=== PATIENT | female | born 1940 | race African-American/Black ===

== ENCOUNTER 2019-11-16 17:06 | Emergency (ER) | payer OTHER, BC ==
[~2019-11-16] VITALS: Ht 160 cm; Wt 71.7 kg
[2019-11-16] MEDS ORDERED: COZAAR 25 MG TA25 M2 PO (21:51)
[2019-11-16 22:00] VITALS: BP 137/72
--- NOTE | 2019-11-17 12:34 | EKG ---
[facility] [place] [address] ELECTROCARDIOGRAM REPORT Name: KESHA PUENTES V Room #: DEP [facility]#: [id number] Admission: 11/16/19 Attend Phys: Discharge: 11/16/19 Date of : 38 Report #: [id number] THIS REPORT FOR: cc: Bayron Peter MD, Mark A. MD Lundgren, Craig H. 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[facility] : 1940 Requested By: Marla Gifford Order Number: [id number] MD: Lan Agosto Measurements Intervals [place] Rate: 80 P: -4 VT: 146 QRS: -24 QRSD: 89 T: 53 QT: 381 QTc: 440 Interpretive Statements Sinus rhythm Left ventricular hypertrophy Anterior Q waves, possibly due to LVH No previous ECG available for comparison Electronically Signed On 11-17-2019 8:51:54 CUFF SETTER by Lan Agosto [email or web address] <ELECTRONICALLY SIGNED> By: Lan Agosto MD, [facility] 11/17/19 0851 1714 1714 Lan Agosto MD, [facility] /EPI
== END 2019-11-16 22:00 | disposition home or self-care (01) ==
LOC: ER 17:06
DX: I10 Essential (primary) hypertension (principal); Z90.711 Acquired absence of uterus with remaining cervical stump

== ENCOUNTER 2021-09-12 12:50 | Inpatient (IN) | payer OTHER, BC ==
[~2021-09-12] VITALS: Ht 170.2 cm; Wt 66.3 kg
[~2021-09-12 12:50] MED LIST: COZAAR 25 MG TA25 M2 PO
[2021-09-12 13:05] VITALS: BP 174/86
[2021-09-12 14:38] LABS: URINE BILIRUBIN NEGATIVE (Negative); URINE BLOOD 2+ (Negative); URINE CLARITY SL CLOUDY; URINE COLOR YELLOW; URINE GLUCOSE-RANDOM* NEGATIVE (Negative); URINE KETONES 1+ (Negative); URINE LEUKOCYTES-REFLEX NEGATIVE (Negative); URINE NITRITE-REFLEX NEGATIVE (Negative); URINE PROTEIN (DIPSTICK) 2+ (Negative); URINE SPECIFIC GRAVITY 1.025 (1.005-1.035); URINE UROBILINOGEN 0.2 E.U./dl (0.2-1.0)
[2021-09-12 14:57] LABS: CALCIUM 9.3 mg/dL (8.5-10.1); CREATININE 1.2 mg/dL (0.6-1.0); POTASSIUM 3.9 mmol/L (3.5-5.1)
[2021-09-12 14:59] LABS: SQUAMOUS 0-3 Few /LPF (0-3)
[2021-09-12 15:00] LABS: CASTS None Seen /LPF (None Seen); URINE RBC 3-10 Few /HPF (NONE SEEN); URINE WBC-REFLEX 0-5 Rare /HPF (0-5)
[2021-09-12 15:01] LABS: CRYSTALS None Seen /LPF (None Seen)
[2021-09-12 15:12] LABS: ABSOLUTE NEUTROPHILS 9.6 thou/uL (1.4-8.2); BASOPHILS 0.5 % (0.0-2.0); HEMATOCRIT 40.1 % (37.0-47.0); HEMOGLOBIN 12.9 gm/dL (12.0-15.0); LYMPHOCYTES 4.1 % (24.0-44.0); MCH 29.1 pg (26.0-34.0); MCV 90.9 fL (80.0-100.0); MONOCYTES 7.3 % (1.0-8.0); PLATELET COUNT 340 thou/uL (150-400); POLYS 88.1 % (36.0-66.0); RBC 4.41 mil/uL (4.20-5.00); RDW 14.5 % (10.5-14.5); WBC 10.9 thou/uL (4.0-11.0)
[2021-09-12 17:34] LABS: ALBUMIN 2.8 g/dL (3.4-5.0); DIRECT BILIRUBIN < 0.1 mg/dL (<0.1-0.2); SGOT 69 U/L (15-37); SGPT 60 U/L (14-59); TOTAL BILIRUBIN 0.4 mg/dL (0.2-1.0); TOTAL PROTEIN 8.1 g/dL (6.4-8.2)
[2021-09-12 17:52] LABS: FOLIC ACID 14.7 ng/mL (8.6-58.9)
[2021-09-13 02:39] LABS: CALCIUM 8.5 mg/dL (8.5-10.1); CREATININE 0.9 mg/dL (0.6-1.0); DIRECT BILIRUBIN 0.1 mg/dL (<0.1-0.2); MAGNESIUM 2.4 mg/dL (1.8-2.4); PHOSPHORUS 3.6 mg/dL (2.5-4.9); POTASSIUM 4.2 mmol/L (3.5-5.1); TOTAL BILIRUBIN 0.3 mg/dL (0.2-1.0)
[2021-09-13 03:25] LABS: ABSOLUTE NEUTROPHILS 6.9 thou/uL (1.4-8.2); BASOPHILS 0.2 % (0.0-2.0); HEMATOCRIT 37.5 % (37.0-47.0); HEMOGLOBIN 12.2 gm/dL (12.0-15.0); LYMPHOCYTES 6.1 % (24.0-44.0); MCH 29.6 pg (26.0-34.0); MCHC 32.6 g/dL (28.0-37.0); MCV 90.6 fL (80.0-100.0); MONOCYTES 5.9 % (1.0-8.0); PLATELET COUNT 350 thou/uL (150-400); POLYS 87.8 % (36.0-66.0); RBC 4.14 mil/uL (4.20-5.00); RDW 13.8 % (10.5-14.5); WBC 7.8 thou/uL (4.0-11.0)
[2021-09-13 08:23] VITALS: BP 167/88
--- NOTE | 2021-09-13 08:46 | EKG ---
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
[2021-09-13 12:33] VITALS: BP 172/100
--- NOTE | 2021-09-13 13:21 | NUR ---
PER PHARMACY, REMDESIVIR WILL BE SCHEDULED FOR 1600 TODAY DUE TO INCOMPATIBILITY OF ZITHROMAX AND REMDESIVIR. PT. RECEIVING ZITHROMAX IV AT THIS TIME.
--- NOTE | 2021-09-13 14:39 | NUR ---
PT. RECEIVED AM MEDICATIONS THIS MORNING. PT. WAS EXHIBITING COUGH AND SWALLOWING DIFFICULTY WHEN AM RN WAS ADMINISTERING HER MEDICATIONS. PT. WAS SEEN BY SPEECH EVALUATION AND TOLERATED PO MEDICAITON ADMINISTRATION WITH RN AND SPEECH THERAPY AT BEDSIDE. PER SPEECH THERAPY, PT. THICKENED DIET. PT. IS AWARE OF HER PLAN OF CARE, AND WITHOUT COMPLAINTS AT THIS TIME.
[2021-09-13 14:52] VITALS: BP 166/110
[2021-09-13 19:56] VITALS: BP 155/82
[2021-09-13 21:01] VITALS: BP 166/90
[2021-09-13 23:38] VITALS: BP 152/83
[2021-09-14 03:06] VITALS: BP 181/86
--- NOTE | 2021-09-14 03:44 | NUR ---
PT ARRIVED TO ROOM 355 VIA CART. ADMISSION ASSESSMENTS COMPLETED WITH PT PROVIDING SOME INFORMATION BUT UNAWARE OF HER MEDICAL/SURGICAL HISTORY. VIEWED H&P FOR FURTHER INFORMATION. PT REPORTEDLY VACCINATED WITH NO CONTACT WITH ANY KNOWN COVID POSTIIVE PERSONS PER H&P. PT ON OPTIFLO UPON ARRIVAL TO UNIT AND HAS BEEN UNTIL THIS MORNING. THIS AM PT WAS RESISTIVE TO THAT DEVICE BUT WAS UNABLE TO VERBALIZE THE REASON. DID DISCOVER THAT CONDENSATION IN THE TUBING WAS LIKELY BLOWING SMALL AMOUNTS OF WATER INTO HER NARES. PT WOULD NOT ALLOW THAT CANNULA TO BE PLACED AGAIN EVEN WHEN EXPLAINING THAT IT WAS EMPTIED. PT ROOM AIR O2 SAT DROPPPED TO 77%. NON-REBREATHER PLACED AND O2 SAT WAS UP TO 92-93%. RT INFORMED. WILL MONITOR. CONTINUOUS PULSE OXIMETER ALREADY IN PLACED.
[2021-09-14 06:52] LABS: ANION GAP 11 mmol/L (7-16); BUN 27 mg/dL (7-18); CALCIUM 8.7 mg/dL (8.5-10.1); CHLORIDE 111 mmol/L (98-107); CO2 24 mmol/L (21-32); DIRECT BILIRUBIN < 0.1 mg/dL (<0.1-0.2); GLUCOSE 148 mg/dL (74-106); PHOSPHORUS 2.8 mg/dL (2.6-4.7); POTASSIUM 4.4 mmol/L (3.5-5.1); SGOT 41 U/L (15-37); SGPT 50 U/L (14-59); SODIUM 146 mmol/L (136-145); TOTAL BILIRUBIN 0.3 mg/dL (0.2-1.0); TOTAL PROTEIN 6.7 g/dL (6.4-8.2)
[2021-09-14 07:54] VITALS: BP 175/99
--- NOTE | 2021-09-14 08:14 | HC ---
[facility] [place] [address] CONSULTATION Name: KESHA PUENTES Room #: 355- ADM IN M.R.#: [id number] Admission: 09/12/21 Attend Phys: Shmuel Enriquez MD Discharge: Date of : 39 Report #: [id number] THIS REPORT FOR: cc: Bayron Peter MD, Mark A. MD Barry, Joseph W. MD ~ DATE OF SERVICE: 09/13/2021 INFECTIOUS DISEASE CONSULTATION ATTENDING PHYSICIAN: Dr. Enriquez. REASON FOR EVALUATION: COVID-19 infection, complicated by pneumonitis and respiratory failure. HISTORY OF PRESENT ILLNESS: Chart reviewed. The patient examined. This is an 80-year-old with history of hypertension, apparently lives at home with her daughter, has several-day history of illness, primarily a nonproductive cough. She states she had a diminished appetite and p.o. intake, progressive weakness. She presented to the Emergency Room, was found to have a positive COVID test. Chest x-ray showed some perihilar infiltrates, cardiomegaly. Lactic acid 1.7. Urinalysis otherwise unremarkable. CRP was elevated at 191.7. Sed rate of 85. Blood cultures sterile thus far. Urine culture was negative. She did have low-grade temperature elevations. On admission, she was resuscitated, subsequently hemodynamically has improved. She is maintained on Optiflow 50 L/min, FiO2 of 60%. She was empirically started on combination therapy with azithromycin, ceftriaxone, remdesivir as well as corticosteroids. ALLERGIES: None known. MEDICATIONS: Include ceftriaxone, cholecalciferol, zinc, ascorbic acid, pantoprazole, dexamethasone, guaifenesin, enoxaparin, ipratropium, albuterol inhaler, p.r.n. analgesics, antiemetics, remdesivir. PAST MEDICAL HISTORY: Hypertension, possible mild dementia. SOCIAL HISTORY: Former smoker. No illicit drug use. No ethanol. FAMILY HISTORY: Noncontributory. REVIEW OF SYSTEMS: Otherwise, unremarkable. PHYSICAL EXAMINATION: GENERAL: She appears somewhat chronically ill, is pleasant, cooperative. She is mildly encephalopathic. HEENT: Normocephalic. Extraocular muscles intact. Optiflow in place. [facility] [address] [place] [address] CONSULTATION Name: KESHA PUENTES Room #: 355-P [facility].#: [id number] Admission: 09/12/21 Attend Phys: Shmuel Enriquez MD Discharge: Date of : 39 Report #: [id number] NECK: Supple. LUNGS: Bilateral few scattered coarse breath sounds. HEART: Borderline tachycardic, regular. I do not appreciate a murmur. ABDOMEN: Soft, nontender. EXTREMITIES: No cyanosis. GENITOURINARY AND RECTAL: Deferred. LABORATORY DATA: Blood and urine cultures negative thus far. As noted above, CBC: White count of 7.8, H and H 12.2 and 37.5, platelets of 350. Electrolytes: Sodium 141, potassium 4.2, chloride 108, bicarbonate is 22, anion gap of 11. BUN and creatinine 23 and 0.9. AST of 44, ALT of 43, albumin 2, total protein 7.0, estimated GFR of 73. Sed rate of 85. TSH 0.674. Procalcitonin 0.14. ASSESSMENT AND PLAN: COVID-19 infection, complicated by pneumonitis, respiratory failure. Continue as prescribed the therapy, we will add ____. She appears to be quite tenuous at this point and I would be concerned about an occult process, ____ inflammation, elevated sed rate ____ be attributable to the coronavirus. May have some underlying occult process. Continue oxygen therapy as allowed. Monitor expectantly. Continue supportive care. <ELECTRONICALLY SIGNED> By: Brian Shahid MD 09/14/21 0814 1520 2320 Brian Shahid MD /nt
[2021-09-14 11:29] VITALS: BP 156/90
--- NOTE | 2021-09-14 15:05 | NUR ---
PT ADMITTED RELATED TO COVID-19. CM REVIEWED CHART AND SPOKE WITH CARE TEAM. CM UNABLE TO MEET WITH PT RELATED TO ENHANCED ISOLATION. CM SPOKE TO PTS DAUGHTER DONY WHO REPORTS SHE IS PTS DPOA. 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 SHE REPORTS 6-8 STAIRS THAT LEAD TO HER BASEMENT FOR LAUNDRY BUT PT DOES NOT GO DOWN THERE. DAUGHTER DOES PTS LAUNDRY. PT IS INDEPENDANT WITH MOBILITY AND ADLS. PT LIVES 15 MIN AWAY FROM DONY WHO CHECKS ON HER DAILY. PT DRIVES HER OWN CAR PRIOR TO ADMISSION. PTS DAUGHTER REPORTS ONCE MEDICALLY STABLE THE GOAL FOR HER MOM TO RETURN HOME. CM FOLLOWING DC PLANNING.
[2021-09-14 15:39] VITALS: BP 173/102
--- NOTE | 2021-09-14 18:40 | NUR ---
assumed care of pt at 0700. pt pleasant, confused, forgetful. stress incontinence. iv fluids d/c'd. iv abx infusing per order. small appetite. dtr updated on plan of care. bp high - prn antihypertensives given.
[2021-09-14 20:33] VITALS: BP 163/101
[2021-09-14 22:56] VITALS: BP 149/86
[2021-09-15 04:21] VITALS: BP 166/93
[2021-09-15 05:08] LABS: ANION GAP 10 mmol/L (7-16); BUN 25 mg/dL (7-18); CALCIUM 8.7 mg/dL (8.5-10.1); CHLORIDE 110 mmol/L (98-107); CO2 25 mmol/L (21-32); CREATININE 0.9 mg/dL (0.6-1.0); DIRECT BILIRUBIN < 0.1 mg/dL (<0.1-0.2); GLUCOSE 133 mg/dL (74-106); PHOSPHORUS 2.4 mg/dL (2.6-4.7); POTASSIUM 3.9 mmol/L (3.5-5.1); SGOT 33 U/L (15-37); SGPT 43 U/L (14-59); SODIUM 145 mmol/L (136-145); TOTAL BILIRUBIN 0.4 mg/dL (0.2-1.0); TOTAL PROTEIN 6.6 g/dL (6.4-8.2)
[2021-09-15 07:34] VITALS: BP 163/90
--- NOTE | 2021-09-15 08:52 | NUR ---
PT MAKING SLOW PROGRESS TOWARDS GOALS. LUNGS CTA UPPER LOBES WITH FAINT CRACKLES IN BL LOWER LOBES. ON OPTIFLO WITH 02 AT 45L AND FIO2 AT 41-44% OVERNIGHT. PT ABLE TO TOLERATE THIS THROUGHOUT THE NIGHT. OCCASIONAL DRY COUGH BUT PT DOES APPEAR TO BECOME ANXIOUS AND NEARLY PANIC WHEN SHE COUGHS. THIS TYPICALLY LAST VERY BRIEFLY AND VERBAL SUPPORT HAS BEEN HELPFUL. PT ORIENTED TO HER NAME, DATE, LOCATION "HOSPITAL" AND "I HAVE COVID." NO COUGHING NOTED WHEN TAKING THICKENED LIQUIDS THOUGH PT DOES TAKE VERY SMALL AMOUNTS WHEN DRINKING.
[2021-09-15 11:23] VITALS: BP 160/88
[2021-09-15 15:24] VITALS: BP 181/94
--- NOTE | 2021-09-15 16:16 | NUR ---
PATIENT ASSESMENTS CHARTED. PATIENT NOT WANTING TO EAT OR DRINK MUCH TODAY. FAMILY UPDATED BY RN. PATIENT HAD SOME HIGH BP, TREATED WITH PRN HYDRALAZINE.
[2021-09-15 20:00] VITALS: BP 166/93
[2021-09-16 05:10] VITALS: BP 137/85
[2021-09-16 05:30] VITALS: BP 157/68
[2021-09-16 05:44] LABS: ALBUMIN 2.2 g/dL (3.4-5.0); CALCIUM 8.9 mg/dL (8.5-10.1); DIRECT BILIRUBIN 0.1 mg/dL (<0.1-0.2); PHOSPHORUS 3.1 mg/dL (2.5-4.9); POTASSIUM 4.2 mmol/L (3.5-5.1); TOTAL BILIRUBIN 0.4 mg/dL (0.2-1.0); TOTAL PROTEIN 6.8 g/dL (6.4-8.2)
[2021-09-16 07:57] VITALS: BP 179/98
[2021-09-16 11:32] VITALS: BP 176/87
[2021-09-16 15:21] VITALS: BP 167/98
--- NOTE | 2021-09-16 16:27 | NUR ---
PATIENT IS ALERT TO SELF AND PLACE THIS SHIFT. PATIENT HAS DIMINISHED BREATH SOUNDS. PATIENT IS ON A HIGH FLOW NASAL CANULA WITH 40L'S OXYGEN SATURATION IS STAYING IN THE MID TO HIGH 90'S. PATIENT IS CC/ TELE AND HAS BEEN SINUS RHYTHM THIS SHIFT. PATIENT HAS HAD LITTLE APPETITE THIS SHIFT. PATIENT IS INCONTINENT OF URINE. PATIENT HAS NOT BEEN OUT OF BED THIS SHIFT BUT HAS BEEN REPOSITIONED Q2 HOURS ORDERED. PATIENT HAS AN IV IN HER LEFT AC. PATIENTS IV IS PATIENT AND SALINE LOCKED. PATIENT WILL CONTINUE TO BE MONITORED.
[2021-09-16 20:55] VITALS: BP 151/87
[2021-09-17] VITALS (7 sets, daily range): BP systolic 146–167; BP diastolic 82–93
--- NOTE | 2021-09-17 00:13 | NUR ---
PT ALERT TO SELF. CONFUSED. VSS AFEBRILE. SATS 89-95% ON OPTIFLO 40LF AND FIO2 50%. PT POCKETS FOOD IN MOUTH AND IS SLOW TO SWALLOW. DENIED PAIN. INC OF URINE. PURE WICK INTACT TO SUCTION. BED DOWN BED ALARM IS ON. NO S/S DISTRESS PRESENTLY.
--- NOTE | 2021-09-17 01:53 | NUR ---
PT DESATTED TO 73%. SHE GOT CONFUSED, PULLED OFF O2 AND TOOK OFF HER CLOTHES AND SAT UP AT SIDE OF BED. PLACED PT BACK UP IN BED AND OPTIFLO REPLACED. RT NOTIFIED. SAT INCREASED SLOWLY T0 95% WITH OPTIFLO FIO2 100% 60 LF AND 100%NR ON TOP. EHSAN MARTINEZ NOTIFIED OF RESP DISTRESS AND DECREASED UO. SHE WILL LOOK AT PT'S CHART. ABGS BEING DRAWN. WILL NOTIFIY DR LÓPEZ OF CHANGES ALSO.
[2021-09-17 02:06] LABS: BE(vivo) -1.6 mmol/L (-2 to +3); HCO3 20.4 mmol/L (22.0-26.0); PCO2 27.5 mmHg (35.0-45.0); PO2 82.5 mmHg (80.0-100.0); pH 7.489 (7.360-7.450)
[2021-09-17 05:00] LABS: ALBUMIN 2.2 g/dL (3.4-5.0); ANION GAP 11 mmol/L (7-16); BUN 32 mg/dL (7-18); CALCIUM 8.9 mg/dL (8.5-10.1); CHLORIDE 111 mmol/L (98-107); CO2 25 mmol/L (21-32); DIRECT BILIRUBIN < 0.1 mg/dL (<0.1-0.2); GLUCOSE 143 mg/dL (74-106); PHOSPHORUS 3.3 mg/dL (2.5-4.9); POTASSIUM 4.1 mmol/L (3.5-5.1); SGOT 60 U/L (15-37); SGPT 89 U/L (30-65); SODIUM 147 mmol/L (136-145); TOTAL BILIRUBIN 0.4 mg/dL (0.2-1.0); TOTAL PROTEIN 6.3 g/dL (6.4-8.2)
[2021-09-17 05:04] LABS: HEMATOCRIT 41.1 % (37.0-47.0); HEMOGLOBIN 13.3 gm/dL (12.0-15.0); MCH 29.4 pg (26.0-34.0); MCHC 32.2 g/dL (28.0-37.0); MCV 91.2 fL (80.0-100.0); RBC 4.51 mil/uL (4.20-5.00); RDW 14.4 % (10.5-14.5)
--- NOTE | 2021-09-17 07:46 | NUR ---
PT NOT PROGRESSING TOWARDS D/C GOALS. PT STILL ON OPTIFLOW 100% FIO2 AND LF 60 WITH 100% NRB MASK ON TOP ALSO. PT APPEARS TO BE HAVING TROUBLE SWALLOWING. HELD AM COUGH MEDICINE. NOTIFIED JACKAROO PCXRAY ORDERED. PT NPO FOR NOW. ST TO REEVALUATE. SHE HAS NOT ATTEMPTED TO GET OOB AGAIN TONIGHT.
--- NOTE | 2021-09-17 12:10 | NUR ---
CARE ASSUMED THIS AM, PT ALERT AND ORIENTED TO SELF ALONE. CONFUSED AND IMPULSIVE AT TIMES. CURRENTLY ON 90%, 60L ON OPTIFLOW. SOB WITH EXERTION. MEDS CRUSHED AND ON PUREED DIET. PT HAS LOW APPETITE, ON;LY EATS SPOONFUL OF MEALS , PT ENCOURAGED. ESTENAL CATHETER IN PLACE. FALL AND ENHANCED PRECAUTIONS IN PLACE. WILL CONTINUE TO MONITOR
--- NOTE | 2021-09-17 14:36 | NUR ---
SW reviewed chart and spoke with nursing and attending physician. Pt remains in Enhanced Isolation due to COVID. Pt is afebrile and requiring optiflow. Pt is on IV abx, IV steroids and Remdesivir. Pt unable to participate with therapy today. TEVIN is following to assist as needed with discharge planning.
--- NOTE | 2021-09-18 03:05 | NUR ---
MAINTAINING OXYGENATION LEVEL ON THE 100%,60 LITERS OPTIFLO. DROWSY TONIGHT. I DID NOT GIVE HER THE COUGH SYRUP TONIGHT. SHE HAS SPIT UP HER SPUTUM ONTO HER CHEST SEVERAL TIMES TONIGHT. WHICH HAS BEEN A TRINIDAD COLOR AND THIN. SHE HAS VERY LITTLE ENERGY TO SWOLLOW. SHE IS PROFOUNDLY WEAK. VERY LITTLE TIMES AWAKE. SHE IS ABLE TO FOLLOW A COMMAND, BUT DRIFTS OFF TO SLEEP EASILY. TURNS AND CLEANING OFTEN. EXTERNAL CATHETER CATCHING SOME URINE.
[2021-09-18 03:54] VITALS: BP 134/83
[2021-09-18 06:24] LABS: ALBUMIN 2.1 g/dL (3.4-5.0); ANION GAP 9 mmol/L (7-16); BUN 32 mg/dL (7-18); CALCIUM 8.6 mg/dL (8.5-10.1); CHLORIDE 114 mmol/L (98-107); CO2 25 mmol/L (21-32); CREATININE 0.9 mg/dL (0.6-1.0); DIRECT BILIRUBIN < 0.1 mg/dL (<0.1-0.2); GLUCOSE 117 mg/dL (74-106); PHOSPHORUS 3.3 mg/dL (2.5-4.9); POTASSIUM 4.2 mmol/L (3.5-5.1); SGOT 51 U/L (15-37); SGPT 77 U/L (30-65); SODIUM 148 mmol/L (136-145); TOTAL BILIRUBIN 0.4 mg/dL (0.2-1.0); TOTAL PROTEIN 5.7 g/dL (6.4-8.2)
[2021-09-18 08:05] VITALS: BP 127/76
--- NOTE | 2021-09-18 08:38 | NUR ---
Pt with negible oral intake past week, profound weakness, wt loss 6 lb and rising Na/Cl without IVF. Recommend start clinimix PPN at 125ml/hr goal
[2021-09-18 11:28] VITALS: BP 140/83
--- NOTE | 2021-09-18 13:29 | NUR ---
PT IS SLOWLY PROGRESSING TOWARDS POC, CONTINUE TO HAVE LOW APPETTITE, SWOLLOWS FOOD REALLY SLOWLY AND HAS TO BE PROMPTED TO DO SO. PT HAS THRUSH ON HER TONGUE =, DR. FAUST MADE AWARE. NYSTATIN ORDERED. OPTIFLOW ON 30L. 60% , TOLERATING WELL. FALL AND ENHANCED PRECAUTIONS IN PLACE. DTR CALLED AND UPDATED ABOUT PT CARE. DENIES ANY NEEDS, WILL CONTINUE TO MONITOR
[2021-09-18 15:14] VITALS: BP 128/86
--- NOTE | 2021-09-18 17:08 | NUR ---
SW reviewed chart and spoke with nursing and attending physician. Pt remains in Enhanced Isolation due to COVID. Pt is afebrile and requiring optiflow. Pt is on IV meds and Remdesivir. Therapy has been ordered and is following for recommendations for discharge needs. SW is following to assist as needed with discharge planning.
[2021-09-18 19:55] VITALS: BP 141/85
--- NOTE | 2021-09-19 04:02 | NUR ---
RESTING QUIETLY, DENIES PAIN. SHE IS FORGETFUL AND ALERT TO PERSON. UNABLE TO TO CONVERSE WITH THE HIGH DEMAND OF OXYGEN SHE IS RECIEVING. SHE IS TAKING HER NYSTATIN SLOWLY WHEN GIVEN, HOWEVER SHE WILL SWOLLOW IT. SHE MUST BE REMINDED TO SWOLLOW. SHE TENDS TO POCKET ANY PO INTAKE. NEEDS ASSIST WITH TURNING SHE IS VERY WEAK.
[2021-09-19 05:00] VITALS: BP 149/83
[2021-09-19 07:56] VITALS: BP 137/82
[2021-09-19 11:29] VITALS: BP 147/79
[2021-09-19 15:18] VITALS: BP 136/78
--- NOTE | 2021-09-19 18:40 | NUR ---
RN ASSUMED PT'S CARE AT 0700AM, PT IS CONFUSED, PT CAN NOT FOLLOW COMMANDS, PT IS ON OPTIFLOW O2 55-65%, 35L/MIN, PT'S O2SAT AND VS ARE STABLE AT DAY SHIFT, RN HAS NOTIFIED HOSPITAL DR AND PT'S DAUGHTER ABOUT PT'S REFUSION ,PT REFUSED TO EAT AND REFUSED TAKING MEDICATIONS.
[2021-09-19 19:31] VITALS: BP 147/80
[2021-09-20 03:22] VITALS: BP 162/98
--- NOTE | 2021-09-20 03:45 | NUR ---
PT IS AWAKE AND ORIENTED TO SELF ONLY, ANSWERS WITH HER NAME WHEN ASKED ANY OTHER QUESTIONS. PT NOTED WITH POOR PO INTAKE BY OFFGOING SHIFT AND HAS REFUSED TO OPEN HER MOUTH FOR NIGHT MEDICATIONS. ORAL CARE PROVIDED. STARTED SHIFT ON OPTIFLO 35L/55%; RT TITRATED DOWN AND PT HAS BEEN STABLE ON 10L NC FOR SEVERAL HOURS WITH O2 SATS >93%. WILL CONTINUE TO OBSERVE FOR CHANGES
[2021-09-20 04:03] LABS: ALBUMIN 2.2 g/dL (3.4-5.0); ANION GAP 7 mmol/L (7-16); BUN 34 mg/dL (7-18); CALCIUM 8.8 mg/dL (8.5-10.1); CHLORIDE 115 mmol/L (98-107); CO2 26 mmol/L (21-32); CREATININE 0.9 mg/dL (0.6-1.0); DIRECT BILIRUBIN < 0.1 mg/dL (<0.1-0.2); GLUCOSE 108 mg/dL (74-106); PHOSPHORUS 4.3 mg/dL (2.5-4.9); POTASSIUM 4.7 mmol/L (3.5-5.1); SGOT 37 U/L (15-37); SGPT 70 U/L (30-65); SODIUM 148 mmol/L (136-145); TOTAL BILIRUBIN 0.3 mg/dL (0.2-1.0); TOTAL PROTEIN 5.5 g/dL (6.4-8.2)
[2021-09-20 08:22] VITALS: BP 126/72
--- NOTE | 2021-09-20 09:06 | NUR ---
Pt continues with negligable intakes >1 week, showing sig wt loss and Cl continues to rise. Recommend start Clinimix PPN 125ml/hr goal. Recommend obtain current weight.
[2021-09-20 10:00] LABS: HEMATOCRIT 41.6 % (37.0-47.0); HEMOGLOBIN 12.8 gm/dL (12.0-15.0); MCH 28.5 pg (26.0-34.0); MCHC 30.7 g/dL (28.0-37.0); MCV 92.9 fL (80.0-100.0); PLATELET COUNT 323 thou/uL (150-400); RBC 4.48 mil/uL (4.20-5.00); RDW 14.9 % (10.5-14.5); WBC 16.6 thou/uL (4.0-11.0)
[2021-09-20 11:35] LABS: ABSOLUTE NEUTROPHILS 14.9 thou/uL (1.4-8.2)
[2021-09-20 12:08] VITALS: BP 137/70
--- NOTE | 2021-09-20 14:26 | NUR ---
SW reviewed chart and spoke with nursing and attending physician. Pt remains in Enhanced Isolation due to COVID. Pt is afebrile and on optiflow. Pt is on IV steroids and Remdesivir. 5N consult ordered today. Awaiting input from 5N regarding acceptance to inpt acute rehab when medically stable. SW spoke with pt's dtr, Nery, via phone to provide update and discuss discharge planning. Pt's dtr is aware and agreeable with post-acute placement for continued rehab services and post-acute placement. Pt's dtr states she spoke with attending physician yesterday and was provided with a detailed update. Pt's dtr brought pt's Bible and other personal items to the hospital today. Family is hoping to to a FaceTime/virtual visit with pt if possible. SW requested nursing to assist if possible. SW is following to assist as needed with discharge planning.
--- NOTE | 2021-09-20 16:28 | NUR ---
assumed care of pt at 0700 . no apparent distress. remains confused. on optiflow at 50L/70%. incontinent. small appetite. pockets foods. limited activity with PT due to coughing fits and desaturation episodes. wcm.
[2021-09-20 16:30] VITALS: BP 141/82
[2021-09-20 19:03] LABS: URINE BILIRUBIN NEGATIVE (Negative); URINE BLOOD TRACE (Negative); URINE CLARITY CLEAR; URINE COLOR YELLOW; URINE GLUCOSE-RANDOM* NEGATIVE (Negative); URINE KETONES TRACE (Negative); URINE LEUKOCYTES-REFLEX NEGATIVE (Negative); URINE NITRITE-REFLEX NEGATIVE (Negative); URINE PROTEIN (DIPSTICK) NEGATIVE (Negative); URINE SPECIFIC GRAVITY >= 1.030 (1.005-1.035); URINE UROBILINOGEN 0.2 E.U./dl (0.2-1.0)
[2021-09-20 19:35] VITALS: BP 140/83
[2021-09-21 03:28] LABS: ALBUMIN 2.3 g/dL (3.4-5.0); CALCIUM 8.7 mg/dL (8.5-10.1); CREATININE 0.9 mg/dL (0.6-1.0); DIRECT BILIRUBIN 0.1 mg/dL (<0.1-0.2); POTASSIUM 4.5 mmol/L (3.5-5.1); TOTAL BILIRUBIN 0.3 mg/dL (0.2-1.0); TOTAL PROTEIN 5.6 g/dL (6.4-8.2)
--- NOTE | 2021-09-21 03:48 | NUR ---
PT HAS SLEPT MOST OF THE SHIFT, IS EASILY AWOKEN AND RESPONDS TO NAME, ORIENTED TO SELF ONLY, DOES NOT RESPOND APPROPRIATELY TO OTHER ORIENTATION QUESTIONS. PT BEGAN SHIFT ON OPTIFLOW 50L/70% FIO2, HAS BEEN ABLE TO TITRATE TO 35L/60% FIO2 AND HAS MAINTAINED O2 SATS >93%. PUREWICK CATHETER IN PLACE, DRAINING CLEAR TINO URINE. PT WITH POOR PO INTAKE, WILL NOT SWALLOW PO MEDICATIONS. ORAL CARE PROVIDED. REPOSITIONED AT ROUTINE INTERVALS. WILL CONTINUE TO OBSERVE FOR CHANGES.
[2021-09-21 04:15] VITALS: BP 137/71
[2021-09-21 08:31] VITALS: BP 134/73
[2021-09-21 11:44] VITALS: BP 142/81
--- NOTE | 2021-09-21 14:11 | NUR ---
SW reviewed chart and spoke with nursing and attending physician. Pt remains in Enhanced Isolation due to COVID. Pt is afebrile and on optiflow. Pt is on IV steroids. 5N consulted. 5N is able to accept pt to rehab when medically stable. O2 must be down to 10L or less. siene maker spoke with pt's dtr, Nery, who confirmed that family will be able to provide 24 hour care after discharge. Pt will be moving in with Nery when discharged from the hospital. Pt will remain on 3W as rehab status until out of isolation. SW updated attending physician. SW is following to assist as needed with discharge planning.
[2021-09-21 16:47] VITALS: BP 144/84
--- NOTE | 2021-09-21 18:36 | NUR ---
improved O2 needs - now on 2-4L NC. small appetite but willing to eat ice creams. small progress toward poc goals.
[2021-09-21 19:09] VITALS: BP 160/90
[2021-09-22 05:03] VITALS: BP 159/64
[2021-09-22 05:52] LABS: ABSOLUTE NEUTROPHILS 11.4 thou/uL (1.4-8.2); BASOPHILS 0.2 % (0.0-2.0); EOSINOPHILS 0.9 % (0.0-3.0); HEMATOCRIT 40.4 % (37.0-47.0); HEMOGLOBIN 12.8 gm/dL (12.0-15.0); LYMPHOCYTES 6.7 % (24.0-44.0); MCH 29.2 pg (26.0-34.0); MCHC 31.8 g/dL (28.0-37.0); MCV 91.7 fL (80.0-100.0); MONOCYTES 5.5 % (1.0-8.0); POLYS 86.7 % (36.0-66.0); RBC 4.41 mil/uL (4.20-5.00); RDW 14.4 % (10.5-14.5); WBC 13.1 thou/uL (4.0-11.0)
[2021-09-22 06:04] LABS: PLATELET COUNT 221 thou/uL (150-400)
[2021-09-22 06:09] LABS: ALBUMIN 2.2 g/dL (3.4-5.0); ANION GAP 8 mmol/L (7-16); BUN 37 mg/dL (7-18); CALCIUM 8.6 mg/dL (8.5-10.1); CHLORIDE 113 mmol/L (98-107); CO2 27 mmol/L (21-32); CREATININE 0.8 mg/dL (0.6-1.0); DIRECT BILIRUBIN < 0.1 mg/dL (<0.1-0.2); GLUCOSE 152 mg/dL (74-106); MAGNESIUM 2.2 mg/dL (1.8-2.4); PHOSPHORUS 3.3 mg/dL (2.5-4.9); POTASSIUM 4.2 mmol/L (3.5-5.1); SGOT 25 U/L (15-37); SGPT 43 U/L (30-65); SODIUM 148 mmol/L (136-145); TOTAL BILIRUBIN 0.3 mg/dL (0.2-1.0); TOTAL PROTEIN 5.6 g/dL (6.4-8.2)
--- NOTE | 2021-09-22 06:31 | NUR ---
PT IS SLOWLY PROGRESSING TOWARD GOAL OF DISCHARGE. IS OFF OPTIFLOW, NOW ON NASAL CANULA, REQUIRING 2-10L. STABLE ON 4L MOST OF THE SHIFT WITH O2 SATS >94%. DOES DESAT QUICKLY WIH MOVEMENT/ROLLING, BUT RECOVERS QUICKLY ON 10L AND ABLE TO BE TITRATED BACK DOWN WITHIN A FEW MINUTES. PUREWICK IN PLACE AND FUNCTIONING, ADEQUATE URINARY OUTPUT NOTED. VSS. PT HAS BEEN MORE INTERACTIVE THIS SHIFT THAN PREVIOUS 2 NIGHTS, THOUGH REMAINS PLEASANTLY CONFUSED AND IS UNABLE TO ANSWER ORIENTATION QUESTIONS BEYOND SELF. WILL CONTINUE TO OBSERVE FOR CHANGES
[2021-09-22 08:02] VITALS: BP 138/77
[2021-09-22 11:59] VITALS: BP 144/80
[2021-09-22] MEDS ORDERED: ZINC SULFATE50 MG PO (12:56)
[2021-09-22] MEDS ORDERED: [UNRECOGNIZED DRUG - CODE] IV (12:56)
[2021-09-22] MEDS ORDERED: NYSTATIN100000 UNI SW&SWALLOW (12:56)
[2021-09-22] MEDS ORDERED: IPRAT-ALBUT 0.5-3 ML INH (12:56)
[2021-09-22] MEDS ORDERED: MIRALAX17 GM PO (12:56)
[2021-09-22] MEDS ORDERED: ACETAMINOPHEN325 M1 PO (12:56)
[2021-09-22] MEDS ORDERED: VITAMIN C1000 MG PO (12:56)
[2021-09-22] MEDS ORDERED: PEPCID20 MG PO (12:56)
[2021-09-22] MEDS ORDERED: VITAMIN D325 MC2 PO (12:56)
[2021-09-22] MEDS ORDERED: ADULT TUSS100 MG/5 M PO (12:56)
[2021-09-22] MEDS ORDERED: HUMALOG100 UNIT/1 SUBQ (12:56)
[2021-09-22] MEDS ORDERED: PREDNISONE 20 M20 M1 PO (12:56)
[2021-09-22 15:13] VITALS: BP 144/80
== END 2021-09-22 15:20 | DRG 871 ==
LOC: ER 12:50 → 3W 16:15 → EROBS 16:15 → 3W 09-13 20:35
PROVIDERS: Internal Medicine; Nurse Practitioner; Nurse Practitioner Family; Specialist; Student in an Organized Health Care Education/Training Program; ADMIT Hospitalist; ATTEND Hospitalist
PROC: XW033E5 Introduction of Remdesivir Anti-infective into Peripheral Vein, Percutaneous Approach, New Technology Group 5 (ICD-10-PCS; principal; 2021-09-12)
PROC: 5A0955A Assistance with Respiratory Ventilation, Greater than 96 Consecutive Hours, High Flow/Velocity Cannula (ICD-10-PCS; 2021-09-13)
PROC: XW033H5 Introduction of Tocilizumab into Peripheral Vein, Percutaneous Approach, New Technology Group 5 (ICD-10-PCS; 2021-09-13)
PROC: 5A09357 Assistance with Respiratory Ventilation, Less than 24 Consecutive Hours, Continuous Positive Airway Pressure (ICD-10-PCS; 2021-09-17)
PROC: 5A0935A Assistance with Respiratory Ventilation, Less than 24 Consecutive Hours, High Flow/Velocity Cannula (ICD-10-PCS; 2021-09-17)
PROC: 5A0935A Assistance with Respiratory Ventilation, Less than 24 Consecutive Hours, High Flow/Velocity Cannula (ICD-10-PCS; 2021-09-18)
PROC: 5A0935A Assistance with Respiratory Ventilation, Less than 24 Consecutive Hours, High Flow/Velocity Cannula (ICD-10-PCS; 2021-09-19)
PROC: 5A09357 Assistance with Respiratory Ventilation, Less than 24 Consecutive Hours, Continuous Positive Airway Pressure (ICD-10-PCS; 2021-09-19)
PROC: 5A0935A Assistance with Respiratory Ventilation, Less than 24 Consecutive Hours, High Flow/Velocity Cannula (ICD-10-PCS; 2021-09-20)
PROC: 5A0935A Assistance with Respiratory Ventilation, Less than 24 Consecutive Hours, High Flow/Velocity Cannula (ICD-10-PCS; 2021-09-21)
DX: A41.89 Other specified sepsis (principal); U07.1 COVID-19; J12.82 Pneumonia due to coronavirus disease 2019; J80 Acute respiratory distress syndrome; G92.8 Other toxic encephalopathy; E43 Unspecified severe protein-calorie malnutrition; N17.9 Acute kidney failure, unspecified; E87.0 Hyperosmolality and hypernatremia; I10 Essential (primary) hypertension; E86.0 Dehydration; R53.81 Other malaise; B37.9 Candidiasis, unspecified; R13.10 Dysphagia, unspecified; R41.0 Disorientation, unspecified; Z66 Do not resuscitate; Z51.5 Encounter for palliative care; Z90.711 Acquired absence of uterus with remaining cervical stump; Z87.891 Personal history of nicotine dependence; Z68.22 Body mass index [BMI] 22.0-22.9, adult
CPT/HCPCS: 10879

== ENCOUNTER 2021-09-22 10:41 | Inpatient (IN) | payer OTHER, BC ==
[~2021-09-22] VITALS: Ht 167.6 cm; Wt 61.7 kg
[2021-09-22] MEDS ORDERED: VITAMIN D325 MC2 PO (12:56)
[2021-09-22] MEDS ORDERED: IPRAT-ALBUT 0.5-3 ML INH (12:56)
[2021-09-22] MEDS ORDERED: NYSTATIN100000 UNI SW&SWALLOW (12:56)
[2021-09-22] MEDS ORDERED: PEPCID20 MG PO (12:56)
[2021-09-22] MEDS ORDERED: [UNRECOGNIZED DRUG - CODE] IV (12:56)
[2021-09-22] MEDS ORDERED: ADULT TUSS100 MG/5 M PO (12:56)
[2021-09-22] MEDS ORDERED: VITAMIN C1000 MG PO (12:56)
[2021-09-22] MEDS ORDERED: HUMALOG100 UNIT/1 SUBQ (12:56)
[2021-09-22] MEDS ORDERED: MIRALAX17 GM PO (12:56)
[2021-09-22] MEDS ORDERED: ACETAMINOPHEN325 M1 PO (12:56)
[2021-09-22] MEDS ORDERED: ZINC SULFATE50 MG PO (12:56)
[2021-09-22] MEDS ORDERED: PREDNISONE 20 M20 M1 PO (12:56)
[2021-09-22 17:16] VITALS: BP 152/84; BP 1528/84
--- NOTE | 2021-09-22 18:25 | NUR ---
CODE STATUS CHANGED TO DNR. ADMISSION STATUS MOVED TO REHAB. SPEECH ASSESSED PT AGAIN AND PT IS POCKETING FOOD AND WAS DEEMED TO ME NPO UNTIL A VIDEO SWALLOW STUDY CAN BE COMPLETED ON FRIDAY. PT IS AMS AND WILL DESAT VERY QUICKLY AT ATTEMPTS TO AMBULATE.
[2021-09-22 20:18] VITALS: BP 156/75
--- NOTE | 2021-09-22 23:03 | NUR ---
PT ALERT X1. ANSWERS NS OCCASSIONALLY. FOLLOWS SOME COMMANDS. CONFUSED. PT NEDS HELP WITH ALLASPECTS OF CARE. PT NPO PRESENTLY UNTILVIDEOSWALLOW IS COMPLETED. VSS. LOW GRADE TEMPS NOTED TODAY ON DAY SHIFT, T 98.0 TONIGHT. UNLABORED ON 10LNC, WILL CONTINUE TO MONITOR PT FOR CHANGES.
[2021-09-23 04:57] VITALS: BP 156/88
--- NOTE | 2021-09-23 06:38 | NUR ---
PT PROGRESSING SLOWLY TOWARDS D/C GOALS. VSS LOW GRADE TEMPS. UNLABORED ON 5LNC. INC OF URINE IN LG AMTS. ZGARD APPLIED. NO S/S DISTRESS.
[2021-09-23 07:12] VITALS: BP 167/92
--- NOTE | 2021-09-23 10:26 | NUR ---
0745 pt 02 HF NC at 5L, slightly labored breathing, anxious 0800 respiratory called, on floor, informed of oxygen increased to 6-7LNC by Dr. Shahid. RT voiced that she will try and titrate 02 back down to 5 L high flow NC.
[2021-09-23 10:45] LABS: BASOPHILS 0.3 % (0.0-2.0); EOSINOPHILS 0.5 % (0.0-3.0); HEMATOCRIT 43.4 % (37.0-47.0); HEMOGLOBIN 13.8 gm/dL (12.0-15.0); LYMPHOCYTES 4.5 % (24.0-44.0); MCHC 31.8 g/dL (28.0-37.0); MCV 91.2 fL (80.0-100.0); MONOCYTES 4.5 % (1.0-8.0); PLATELET COUNT 224 thou/uL (150-400); POLYS 90.2 % (36.0-66.0); RBC 4.76 mil/uL (4.20-5.00); RDW 14.5 % (10.5-14.5); WBC 13.3 thou/uL (4.0-11.0)
[2021-09-23 10:54] LABS: ALBUMIN 2.5 g/dL (3.4-5.0); CALCIUM 8.7 mg/dL (8.5-10.1); CREATININE 0.7 mg/dL (0.6-1.0); POTASSIUM 4.3 mmol/L (3.5-5.1); TOTAL BILIRUBIN 0.5 mg/dL (0.2-1.0); TOTAL PROTEIN 6.4 g/dL (6.4-8.2)
--- NOTE | 2021-09-23 15:40 | NUR ---
0705 report received from photograph developer. pt is a DNR. Isolation for Covid, + on 09/12. From home, dx of Acute Encephalopathy, COVID. A&Ox1-2 with confusion, 5 L High Flow NC. Lungs diminished. active BS. no edema. pt speaks very few words, very weak, bed bound, with purewick in place, draining well. pt is NPO for pocketing food/pills. PPN ordered for replacement, running at 80 ml/hr. IV ABX on board. Speech eval; swallow study to be done on Monday 09/24. non-productive cough, BP's can be high, 150's. Rehab status with pulmonology, ID, PT, OT, ST.
[2021-09-23 19:37] VITALS: BP 125/69
--- NOTE | 2021-09-23 20:53 | NUR ---
PT PROGRESSING SLOWLY TOWARDS D/C GOALS. VSS. UNLABORED ON 7LNC. BS DIMINISHED. NO S/S PAIN OR SOA PRESENTLY. INC OF URINE. PUREWICK IN PLACE. PT REPOSITIONED.ZGARD APPLIED.
[2021-09-24 04:15] VITALS: BP 161/87
[2021-09-24 04:55] VITALS: BP 144/79
[2021-09-24 06:34] LABS: URINE BILIRUBIN NEGATIVE (Negative); URINE BLOOD NEGATIVE (Negative); URINE CLARITY CLEAR; URINE COLOR YELLOW; URINE GLUCOSE-RANDOM* NEGATIVE (Negative); URINE KETONES NEGATIVE (Negative); URINE LEUKOCYTES-REFLEX NEGATIVE (Negative); URINE NITRITE-REFLEX NEGATIVE (Negative); URINE PROTEIN (DIPSTICK) NEGATIVE (Negative); URINE UROBILINOGEN 0.2 E.U./dl (0.2-1.0)
--- NOTE | 2021-09-24 07:35 | NUR ---
PT PROGRESSING SLOWLY TOWARDS D/C GOALS. BP MOD ELEVATED THIS AM . HYDRALAZINE GIVEN. BP DOWN AFTER HYDRALAZINE. SEE VS. LOW GRADE TEMPS. NO C/O PAIN. NO SOA ON 6LNC. UA SENT TO LAB.
[2021-09-24 08:28] VITALS: BP 166/91
--- NOTE | 2021-09-24 16:21 | NUR ---
INITIAL REHAB ASSESSMENT: Pt was admitted to in rehab on Sat. 09/22. Pt is currently in Enhanced Isolation. Pt is afebrile and on 6L of O2. Pt is on IV abx. ST reina ordered for today. Call placed to pt's room. No answer. TEVIN spoke with pt's dtr, Nery, via phone. Introduced role of SW. Pt's dtr states that pt has been living at home prior to hospital admission. Pt has good family support. Plan is for pt to discharge to [facility] after rehab. Pt has not used HH in the past. No preference of a HH provider. TEVIN informed pt's dtr that rehab team conferences are on afternoons. TEVIN is following to assist as needed with discharge planning.
[2021-09-24 19:05] VITALS: BP 166/82
[2021-09-25 05:13] LABS: CALCIUM 8.2 mg/dL (8.5-10.1); CREATININE 0.6 mg/dL (0.6-1.0); POTASSIUM 4.5 mmol/L (3.5-5.1)
[2021-09-25 05:17] LABS: HEMATOCRIT 35.8 % (37.0-47.0); MCHC 32.8 g/dL (28.0-37.0); MCV 91.3 fL (80.0-100.0); RBC 3.92 mil/uL (4.20-5.00); RDW 14.4 % (10.5-14.5); WBC 9.5 thou/uL (4.0-11.0)
[2021-09-25 05:27] LABS: HEMOGLOBIN 11.8 gm/dL (12.0-15.0)
--- NOTE | 2021-09-25 05:29 | NUR ---
PT IS SLOWLY PROGRESSING TOWARD GOALS. STABLE THROUGHOUT THE NIGHT ON 4L/NC WITH O2 SATS >94%. DOES DESATURATE WITH ACTIVITY SUCH ROLLING FOR ZOE-CARE, BUT RECOVERS QUICKLY. PER REPORT, PT WAS RETAINING URINE DURING THE DAY. DURING EARLY ROUNDS AROUND 1945, PT WAS NOTED TO HAVE BEEN INCONTINENT OF URINE. ZOE-CARE PROVIDED AND LINENS CHANGED. PT CHECKED FREQUENTLY THROUGHOUT THE NIGHT FOR FURTHER VOID. AT 0500, PT HAD NO FURTHER EPISODES OF VOIDING. PT WAS BLADDER SCANNED WHICH SHOWED >471CC. PT DENIED ANY URGE TO VOID AND DID NOT VOID AFTER PROMPTING. STRAIGHT CATH INSERTED WITH APPROXIMATELY 500CC OF CLEAR TINO URINE RETURNED. PT TOLERATED PROCEDURE WELL. WILL PASS ON TO ONCOMING NURSE.
[2021-09-25 07:45] VITALS: BP 136/78
[2021-09-25 16:00] VITALS: BP 144/77
--- NOTE | 2021-09-25 18:39 | NUR ---
PT A/0 X2. ORIENTED TO NAME AND THAT SHE IS IN THE HOSPITAL. BLADDER SCANNED X3 TODAY, ONLY 300 SCANNED. NO BOUTS OF INCONTINENCE THIS SHIFT. PPN @ 80 RUNNING CURRENTLY. PT ANXIOUS WHEN WORKING WITH PT/OT/SPEECH, CALM OTHERWISE. PT'S 02 NEEDS FROM 2-10L THIS SHIFT, BUT CURRENTLY ON RA AND SATURATION IS 98%. PT TO REMAIN NPO UNLESS WITH SPEECH FOR MEALS/MEDICATION ADMINISTRATION. WILL CONTINUE TO MONITOR.
[2021-09-25 19:00] VITALS: BP 126/72
--- NOTE | 2021-09-25 20:44 | NUR ---
ASSUMED CARE OF PT AT 1900. PER REPORT FROM DAY SHIFT, PT HAS NOT VOIDED THROUGHOUT THE SHIFT WITH BLADDER SCANS <300CC. AROUND 1954, PT WAS BLADDER SCANNED BY THIS RN, SCAN SHOWED >581CC. PT DENIES FEELING THE URGE TO VOID. PT WAS ENCOURAGED TO ATTEMPT TO VOID AND GENTLE SUPRAPUBIC PRESSURE WAS APPLIED WELL WITHOUT RESULT. PT WAS STRAIGHT CATHED AT 1999 WITH 600CC CLEAR TINO URINE RETURNED. SPECIMEN SENT TO LAB FOR URINALYSIS.
[2021-09-25 23:18] LABS: URINE BILIRUBIN NEGATIVE (Negative); URINE BLOOD 1+ (Negative); URINE CLARITY CLEAR; URINE COLOR YELLOW; URINE GLUCOSE-RANDOM* NEGATIVE (Negative); URINE KETONES NEGATIVE (Negative); URINE LEUKOCYTES-REFLEX NEGATIVE (Negative); URINE NITRITE-REFLEX NEGATIVE (Negative); URINE PROTEIN (DIPSTICK) NEGATIVE (Negative); URINE SPECIFIC GRAVITY >= 1.030 (1.005-1.035); URINE UROBILINOGEN 0.2 E.U./dl (0.2-1.0)
[2021-09-25 23:33] LABS: BACTERIA-REFLEX 1-9 Few /HPF (None Seen); SQUAMOUS 0-3 Few /LPF (0-3); URINE RBC 3-10 Few /HPF (NONE SEEN); URINE WBC-REFLEX 0-5 Rare /HPF (0-5)
[2021-09-25 23:34] LABS: CELLULAR CASTS 0-3 Few /LPF (None Seen); CRYSTALS None Seen /LPF (None Seen); MUCUS 0-3 Light strn/LPF (None Seen)
[2021-09-26 07:07] VITALS: BP 140/81
--- NOTE | 2021-09-26 14:17 | NUR ---
NEO IS ALERT AND ORIENTED TO SELF AND SITUATION THIS SHIFT. SHE IS HARD OF HEARING. PATIENT IS ON ROOM AIR WHEN SHE IS RESTING IN BED/ AND WHEN SHE IS EATING PARTICIPAING IN PT/ OT SHE IS TITRATED UP TO 4L. PATIENT IN REHAB STATUS. PATIENT IS CURRENTLY NPO PER OT DUE TO INCREASED DIFFICULTY SWALLOWING. PATIENTS CRUSHABLE MEDICATONS ARE CRUSHED AND ADMINISTERED IN PUDDING. PATIENTS BLADDER WAS SCANNED AT 0915 THIS MORNING AND 280 ML'S OF URINE ARE FOUND. PATIENT DECLINES URGE TO URINATE AND DOES NOT URINATE WHEN ABDOMEN IS PALPATED. PATIENT WILL CONTINUE TO BE MONITORED.
[2021-09-26 20:10] VITALS: BP 139/78
--- NOTE | 2021-09-27 01:17 | NUR ---
PT PROGRESSING SLOWLY TOWARDS D/C GOALS. VSS AFEBRILE. UNLABORED ON O2 3LNC. PT INC OF URINE AT 2300 ALL OVER BED WHEN I ASSUMED CARE OF THE PT AROUND 23:00. BLADDER SCAN 59 ML. ZGARD APPLIED TO BUTTOCKS. NO BREAKDOWN NOTED. PUREWICK APPLED. LG AMTS LIGHT URINE NOTED ALL OVER BED. COMPLETE BED CHANGE DONE. PT NOW SLEEPING QUIETLY. PPN AND ABX INFUSING.
[2021-09-27 04:40] VITALS: BP 139/77
--- NOTE | 2021-09-27 07:00 | NUR ---
BLADDER SCANNED PT THIS AM AROUND 0600 = >419. STRAIGHT CATHED PT =700. RE BLADDER SCANNED PT =0.
[2021-09-27 07:29] VITALS: BP 143/81
--- NOTE | 2021-09-27 10:16 | NUR ---
Recommend increase PPN to goal of 125 ml/hr r/t severe PCM with sig 18# wt loss and continued NPO until enteral nutrition vs palliative care POC can be determined. Increased rate to total 53% est kcal needs; current rate provides only 34% est kcal needs.
--- NOTE | 2021-09-27 13:31 | NUR ---
Team meeting, recommendation: npo, possible diet with be puree and nectar. needs supervision with all meals. o2 3-4l/nc and destat with activity. Slow progress. Cont. in covid isolation. Must lay down to get her oxygen sat back up above 90%. lloyd for urinary retention. PPN for nutrition. Thrush in her mouth. Need to follow up with daughter to see how many stairs she has at her home. Reteam.
--- NOTE | 2021-09-27 18:27 | NUR ---
Patient is alert and awake this shift. She knows who she is and that she is in a hospital. Patient continues to be on enhanced precautions. Patient is currently on 3L of oxygen. Patient is rehab status. Patient has a small BM this shift. Patient had an lloyd catheter placed this shift due to continued urinary retention. Patient has had good results. Patient has an IV in her right forearm. IV is patent and currently has PPN running at 80 mL's per hours. Patient is on nectar thick liquids and a pureeded diet. Patient is allowed to eat as long as medical is present and provides 100 percent supervision during meal times. Patient will continue to be monitored.
[2021-09-27 19:49] VITALS: BP 124/72
[2021-09-28 02:49] LABS: HEMATOCRIT 33.6 % (37.0-47.0); MCH 29.9 pg (26.0-34.0); MCHC 32.7 g/dL (28.0-37.0); MCV 91.4 fL (80.0-100.0); RBC 3.68 mil/uL (4.20-5.00); RDW 14.5 % (10.5-14.5); WBC 8.9 thou/uL (4.0-11.0)
[2021-09-28 04:24] LABS: CALCIUM 8.8 mg/dL (8.5-10.1); CREATININE 0.6 mg/dL (0.6-1.0); POTASSIUM 4.9 mmol/L (3.5-5.1)
--- NOTE | 2021-09-28 04:39 | NUR ---
ASSUMED PT CARE AT 1900. PT ALERT TO SELF AND WAS DROWSY THROUGHOUT SHIFT. RESPONDS TO VERBAL COMMANDS. PT NEEDS ENCOURAGEMENT WHEN TAKING CRUSHED PO MEDS-SHE POCKETS MEDS IN HER MOUTH AND NEEDS REASSURANCE TO SWALLOW. CURRENTLY ON 3L O2 NC AND O2 SATS 93-96%. CARCAMO TO DD WITH ADEQUATE OUTPUT. VSS AFEBRILE. PPN RUNNING AT 80ML/HR. CONTINUE WITH PLAN OF CARE.
[2021-09-28 05:12] VITALS: BP 134/74
[2021-09-28 07:51] VITALS: BP 134/72
--- NOTE | 2021-09-28 18:56 | NUR ---
PATIENT IS AWAKE AND ALERT. SHE IS ORIENTED TO PERSON. PATIENT IS REHAB STATUS. PATIENT IS ON ENHANCED PRECAUTIONS. PATIENT IS ON 2L OF OXYEN VIA NASAL CANULA. PATIENT IS ON NECTAR THICKENED LIQUIDS WITH A PUREED DIET. PATIENT HAS BEEN 100% SUPERVISED WITH MEALS ORDERED. PATIENT WAS GIVEN MEDICATION WHOLE WITH SPEECH THERAPY PRESENT. THEY REQUEST THAT THE MEDICATIONS BE COMPLETELY COATED IN GRITS (AT BREAKFAST) OR PUDDING/ APPLE SAUCES. PILLS WERE ADMINISTED ONE AT A TIME. AND SHE SWALLOWED THEM WITHOUT DIFFICULTY WITH FREQUENT PERIODS OF REST. PATIENTS MOUTH PER SPEECH HAS BEEN SWABBED WITH TOOTETTES AND NYSTATIN. BRIAN TOLERATED THIS WELL. PATIENT HAS BEEN TURNED Q2 HOURS ORDERED. PATIENT HAS AN IV IN HER RIGHT FOREARM THAT HAS PPN RUNNING IN IT AT 80 ML'S PER HOUR. PATIENT HAS AN IV IN HER RIGHT HAND THAT IS SALINE LOCKED AND PATENT. PATIENT WILL CONTINUE TO BE MONITORED.
[2021-09-28 20:56] VITALS: BP 130/60
--- NOTE | 2021-09-29 07:27 | NUR ---
ASSUMED PT CARE AT 1900. PT ALERT TO SELF ONLY. HIGH ASPIRATION RISK AND REQUIRES MEDS TO BE ADMININSTERED ONE AT A TIME WITH PUDDING OR APPLESAUCE. VSS AFEBRILE. CARLOS ALBERTO TO AKBAR. PPN RUNNING AT 80ML/HR. CONTINUE WITH PLAN OF CARE.
[2021-09-29 07:55] VITALS: BP 141/65
[2021-09-29 15:43] VITALS: BP 154/84
[2021-09-29 16:41] VITALS: BP 154/84
--- NOTE | 2021-09-29 17:49 | NUR ---
PT A/O X2. PT ATE 40% OF LUNCH WITH THIS RN. PT CURRENTLY ON 1L NC. FREQUENT TURNS. SPOKE WITH FAMILY TODAY X2. NO COMPLAINTS OF PAIN. WILL CONTINUE TO MONITOR.
[2021-09-29 18:59] VITALS: BP 131/64
--- NOTE | 2021-09-30 06:39 | NUR ---
PT SLOWLY PROGRESSING TOWARD GOALS. SHE HAS BEEN A&OX2 THIS SHIFT, PLEASANT AND COOPERATIVE. PT DID TAKE HER MEDS WHOLE ONE AT A TIME IN PUDDING; RN ALLOWED PLENTY OF TIME BETWEEN BITES AND ENSURED COMPLETE SWALLOW PRIOR TO NEXT BITE. CARCAMO IN PLACE TO DD, GOOD URINARY OUTPUT NOTED. PPN CONTINUES @80 ML/HR. VSS. WILL CONTINUE TO OBSERVE FOR CHANGES.
[2021-09-30 07:43] VITALS: BP 149/70
[2021-09-30 15:54] VITALS: BP 135/80
--- NOTE | 2021-09-30 18:46 | NUR ---
PATIENT IS ALERT AND AND AWAKE MOST OF THIS SHIFT. SHE IS ORIENTED TO SELF. PATIENT IS CURRENTLY ON ENHANCED PRECAUTIONS AND 5L OF OXYGEN. PATIENT IS REHAB STATUS. PATIENT HAS A CARCAMO CATHETER IN PLACE THAT IS PATENT. PATIENT HAS BEEN TURNED EVER TWO HOURS ORDERED. PATIENT HAS TWO IV'S ONE IN HER RIGHT FOREARM AND ONE IN HER RIGHT HAND. BOTH IV'S ARE PATENT. THE IV IN HER FOREARM ARM IS CURRENTLY INFUSING WITH 80 ML'S PER HOUR OF PPN. PATIENT WILL CONTINUE TO BE MONITORED.
[2021-09-30 20:14] VITALS: BP 149/85
--- NOTE | 2021-10-01 00:04 | NUR ---
PT ALERT TO SELF. FOLLOWS COMMANDS. SHE WAS ABLE TO TAKE HER PILLS TONIGHT WITHOUT DIFFICULTY. DENIED PAIN. VSS AFEBRILE. UNLABORED ON 4LNC. NO S/S DISTRESS PRESENTLY. BED DOWN. CALL LIGHT IN REACH. BED ALARM IS ON.
[2021-10-01 06:14] VITALS: BP 125/67
--- NOTE | 2021-10-01 06:51 | NUR ---
PT PROGRESSING TOWARDS D/C GOALS, AFEBRILE THIS AM. RR 24 INCREASED BACK UP TO 5LNC DUE TO SAT STAYING AROUND 88%. NOW 93% ON 5LNC.
[2021-10-01 08:47] VITALS: BP 126/81
--- NOTE | 2021-10-01 19:08 | NUR ---
PATIENT IS ALERT AND ORIENTED TO SELF THIS SHIFT. SHE IS ON ENHANCED PRECATUTIONS. PATIENT IS CURRENTLY ON 5L OF OXYGEN. PATIENT IS REHAB STATUS. PATIENT HAS A CARCAMO CATHETER IN PLACE THAT IS PATIENT. PATIENT HAS IV'S IN HER RIGHT AC/ RIGHT HAND THAT ARE BOTH PATIENT. PATIENT CURRENTLY HAS PPN RUNNING AT 80 ML'S PER HOUR IN HER RIGHT HAND. THE RIGHT AC IS SALINE LOCKED. PATIENT WILL CONTINUE TO BE MONITORED.
[2021-10-01 20:15] VITALS: BP 109/65
[2021-10-02 03:47] VITALS: BP 147/63
--- NOTE | 2021-10-02 05:00 | NUR ---
Pt. stated she slept well during the night. Assisted to reposition for comfort. O2 at 2L/NC with O2 sat in the mid to upper 90's. Cont. on enhanced precaution , afebrile. PPN infusing. Making some progress towards care plan goals.
[2021-10-02 07:24] VITALS: BP 139/69
[2021-10-02 15:51] VITALS: BP 136/78
--- NOTE | 2021-10-02 17:53 | NUR ---
PATIENT IS ALERT TO SELF AND PLACE DURING THIS SHIFT. SHE UNDERSTANDS SHE IS IN THE HOSPITAL BUT IS UNSURE TO WHICH HOSPITAL SHE IS AT. PATIENT KNOWS SHE IS IN [facility]. PATIENT IS ON ENHANCED PRECAUTIONS. SHE IS ON 2L OF OXYGEN AT THIS TIME. PATIENT WILL BE REMOVED FROM ENHANCED PRECAUTIONS AT MIDNIGHT PER INFECTIOUS DISEASE. PATIENT HAS A CARCAMO CATHETER IN PLACE IT IS PATENT. PATIENT HAS AN IV IN HER RIGHT HAD THAT IS PATIENT AND SALINE LOCKED. PATIENT WILL CONTINUE TO BE MONITORED.
[2021-10-02 19:13] VITALS: BP 131/74
--- NOTE | 2021-10-03 03:05 | NUR ---
Pt. has slept well during the night. Maintaining O2 sat in the mid 90's on 3L/NC. Cont. on enhanced precaution till MN, afebrile. Off isolation as of MN.She has been repositioned for comfort. Making some progress towards care plan goals.
[2021-10-03 07:53] VITALS: BP 112/64
--- NOTE | 2021-10-03 12:21 | NUR ---
Calorie count started and pt eating very minimal amounts, 300 edwin and 9g protein based off past 3 meals. Early satiety. Consider appetite stimulant. Hoping intake will improve if able to eat in 5N dining room if transferred. Continue magic cups and ensure pudding supplements.
--- NOTE | 2021-10-03 14:03 | NUR ---
ASSUMED PATIENT CARE AT 0700. ALERT. ON CHAIR MOST OF TIME. TOLERATED ON 3L. POOR APPETITE. TRANFERED PATIENT TO 503 NOW.
--- NOTE | 2021-10-03 14:06 | NUR ---
PT ARRIVED ON UNIT AT 1355 VIA RECLINER. PT IS A&OX2. PT IS A LITTLE ANXIOUS FROM MOVING TO A DIFFERENT UNIT. SHE IS EXCITED ABOUT HER FAMILY BEING ABLE TO VISIT IT NOW.
[2021-10-03 19:11] VITALS: BP 117/72
--- NOTE | 2021-10-04 00:04 | NUR ---
PT ALERT AND ORIENTED X 1, CONFUSED. CARCAMO PATENT DRAINING CLEAR YELLOW URINE. 02 ON AT 4L PER NC CONT. 02 SAT 91% AT START OF SHIFT. RECHECKED AT 2044 AND IT WAS 98%. PT SOB WITH EXERTION. PT TAKES MEDS CRUSHED IN APPLESAUCE WITHOUT DIFFICULTY. PT DENIES PAIN OR DISCOMFORT. BED ALARM ON FOR SAFETY. PT APPEARS TO BE SLEEPING ON HOURLY ROUNDS.
[2021-10-04 07:17] VITALS: BP 116/66
[2021-10-04 11:00] LABS: HEMOGLOBIN 11.6 gm/dL (12.0-15.0); MCH 30.4 pg (26.0-34.0); MCHC 33.2 g/dL (28.0-37.0); MCV 91.6 fL (80.0-100.0); RBC 3.82 mil/uL (4.20-5.00); RDW 15.7 % (10.5-14.5)
[2021-10-04 11:05] LABS: CALCIUM 9.8 mg/dL (8.5-10.1); CREATININE 0.8 mg/dL (0.6-1.0); POTASSIUM 4.3 mmol/L (3.5-5.1)
--- NOTE | 2021-10-04 12:53 | NUR ---
team, recommendation: soa with activity. 6-8 L of oxygen. Desat oxygen. has anxiety and voiced she gets scared. not walking yet. moderate to severe memory and cognition. poor insight. diet puree with nectar thick liquids. reteam with anticipated dc 10/13/21 ( pt, ot, st, nursing, )
--- NOTE | 2021-10-04 13:17 | NUR ---
Recommend start appetite stimulant, weight pt q 2 days, assess possibility/practicality of enteral nutrition.
--- NOTE | 2021-10-04 18:05 | NUR ---
CARCAMO CATH D/C'D AT 1540 ORDERED. LASIX IV 40 MG ONETIME GIVEN. PT URINATED A SMALL AMOUNT AT 1615.
[2021-10-04 19:14] VITALS: BP 115/64
--- NOTE | 2021-10-05 03:39 | NUR ---
ASSUMED CARE OF PT ON 10/04/21. PT IS A&O TO SELF & SITUATION WTIH MOMENTS OF CONFUSION. IS ON 4L OF O2/NC. IS STABLE. DENIES PAIN. IS UP WITH 1 ASSIST GB, WALKER MIN ASSIST. FALL PRECUATIONS & HOURLY ROUNDING CONTINUED THIS SHIFT. PT REPORTED ABILITY TO TURN SELF IN BED. HOWEVER, THIS NURSE ENCOURAGED & ASSIST PT TO TURN, ALONG WITH RIDDLER OPERATOR. PT IS CURRENTLY SLEEPING. PT SHARED STORIES REGARDING CHILDREN, SON-IN-LAWS, & GRANDCHILDREN WHEN AWAKENED DURING THE NIGHT. CALL LIGHT WITHIN REACH. WILL CONTINUE TO MONTIOR.
[2021-10-05 07:23] VITALS: BP 114/63
[2021-10-05 19:15] VITALS: BP 109/75
--- NOTE | 2021-10-05 19:42 | NUR ---
PT REMAINS ALERT AND ORIENTED X 2-3. UP WITH MIN ASSIST OF 1 USING GB AND RW. CONTINUES ON 4L O2/NC. RT HAND SALINE LOCK FLUSHED WITHOUT INCIDENT. NEW SCOPALAMINE PATCH PLACED BEHIND LEFT EAR. DENIES PAIN OR DISCOMFORT. NO ANXIETY NOTED THIS SHIFT. DAUGHTER IN TO VISIT PT.
--- NOTE | 2021-10-06 02:55 | NUR ---
assumed care approx 1900 evening 10/05. pt lying in bed with head of bed elevated at change of shift. 02 at 4l per n/c. pt sleeping at change of shift. pt awoke to take hs meds with applesauce tolerating well. pt with quiet voice not saying much with her words and somewhat humming and nodding yes or no to this telegraphic typewriter repairer. pt denies constipation despite report that no bm for several days. hypoactive bowel sounds, miralax given tonight. pt appears to be sleeping soundly. bed alarm on and call light in reach. will continue to monitor.
[2021-10-06 05:06] LABS: GLYCOHEMOGLOBIN (HGB A1C) 6.9 % (4.8-5.6)
[2021-10-06 08:55] VITALS: BP 112/73
--- NOTE | 2021-10-06 14:54 | NUR ---
PT REMAINS SOMEWHAT ANXIOUS. HAS STILL NOT HAD A BM. BECAME NAUSEOUS IN LATE MORNING. ORDER FOR ZOFRAN OBTAINED. RELIEF ACHIEVED WITH ZOFRAN. PT STATES THIS HAPPENS TO HER AT HOME ALSO. STATES SHE DRINKS A SPRITE WHICH HELPS WITH THE NAUSEA.
[2021-10-06 20:10] VITALS: BP 116/57
--- NOTE | 2021-10-07 05:23 | NUR ---
ASSUMED CARE OF PT AT 1920 ON 10/06/2021. PT IS A&O TO SELF & SITUATION. DENIES PAIN. IS ON 2L OF O2/NC. IS STABLE. IS UP WITH 1 ASSIST, GB, WALKER. FALL PRECAUTIONS & HOURLY ROUNDING CONTINUED THIS SHIFT. LABS & VITALS REVIWED. ASSIST WITH Q2H TURNS. PT IS CURRENTLY ASLEEP. CALL LIGHT WITHIN REACH. WILL CONTINUE TO MONITOR.
[2021-10-07 07:11] VITALS: BP 117/64
[2021-10-07 17:02] VITALS: BP 117/64
--- NOTE | 2021-10-07 18:18 | NUR ---
PT ALERT TO SELF AND PLACE. PT WORKED WITH P.T. TODAY. PT C/O NAUSEA. ZOFRAN GIVEN WITH STATED GOOD RELIEF. MIRALAX, SENNA AND MILK OF MAG GIVEN FOR CONSTIPATION. SUPERVISED FOR ALL MEALS. WILL CONTINUE TO MONITOR.
[2021-10-07 19:44] VITALS: BP 122/72
--- NOTE | 2021-10-07 22:45 | NUR ---
PT ALERT AND ORIENTED X 2. 02 ON AT 2L PER NC CONT. PT TAKES MEDS IN APPLESAUCE WITHOUT DIFFICULTY. MIRALAX GIVEN AT HS. PT DENIES PAIN OR DISCOMFORT. PT APPEARS TO BE SLEEPING ON HOURLY ROUNDS.
[2021-10-08 08:00] VITALS: BP 124/73
--- NOTE | 2021-10-08 14:03 | NUR ---
Cont. with therapy. re team with anticipated dc on 10/13/21.
[2021-10-08 18:57] VITALS: BP 114/66
--- NOTE | 2021-10-08 23:25 | NUR ---
ASSUMED CARE OF PT AT 1910. PT IS A&O TO SELF & SITUATION. DENIES PAIN. IS ON 2L OF O2/NC. NO SOB OR DISTRESS NOTED. LUNGS ARE CLEAR TO AUSCULATION. IS STABLE. IS UP WITH 1 ASSIST, GB, WALKER. FALL PRECAUTIONS & HOURLY ROUNDING CONTINUED THIS SHIFT. LABS & VITALS REVIEWED. PT PLEASANTLY REFUSED TO TAKE OFF OF CLOTHES & CHANGE INTO PJS, WELL PLEASANTLY REFUSED TO BE REPOSITIONED. PT STATED, "DON'T TREAT ME LIKE I'M A LITTLE KID. I'M A GROWN WOMAN. I OKAY WITH WHAT I HAVE ON & I CAN TURN MYSELF". THIS NURSE USED THERAPUETIC COMMUNICATION WITH THE PT. PT WAS VERY PLEASANT. IS CURRENTLY ASLEEP. CALL LIGHT WITHIN REACH. WILL CONTINUE TO MONITOR.
[2021-10-09 07:13] VITALS: BP 118/67
[2021-10-09 07:30] LABS: ABSOLUTE NEUTROPHILS 5.5 thou/uL (1.4-8.2); BASOPHILS 0.8 % (0.0-2.0); EOSINOPHILS 3.7 % (0.0-3.0); HEMATOCRIT 34.3 % (37.0-47.0); LYMPHOCYTES 13.6 % (24.0-44.0); MCH 30.3 pg (26.0-34.0); MCHC 32.1 g/dL (28.0-37.0); MCV 94.2 fL (80.0-100.0); PLATELET COUNT 420 thou/uL (150-400); POLYS 72.9 % (36.0-66.0); RBC 3.64 mil/uL (4.20-5.00); WBC 7.5 thou/uL (4.0-11.0)
[2021-10-09 07:41] LABS: CALCIUM 9.8 mg/dL (8.5-10.1); CREATININE 0.7 mg/dL (0.6-1.0); MAGNESIUM 2.3 mg/dL (1.8-2.4); POTASSIUM 4.7 mmol/L (3.5-5.1)
--- NOTE | 2021-10-09 16:58 | NUR ---
cm notified by physical therapy, that she will need wheelchair at ar, referral sent to [facility].
[2021-10-09 20:00] VITALS: BP 131/111
--- NOTE | 2021-10-10 02:04 | NUR ---
assumed care approx 1900 evening 10/09. pt sitting up in recliner at change of shift. pt pleasantly confused and forgetful. pt assisted into bed at hs. pt took hs meds with applesauce tolerating well. pt appears to be sleeping soundly. bed alarm on and call light in reach. will continue to monitor.
[2021-10-10 08:15] VITALS: BP 121/71
--- NOTE | 2021-10-10 10:00 | NUR ---
PT SITTING OUT IN DINING ROOM FOR BREAKFAST. PT DTR AT SIDE AND MADE HOME MADE FOOD FOR HER TO EAT. PT TOOK MEDS WITH APPLESAUCE. PT HAS SLIGHT WHITE COLOR TO TONGUE FROM PREVIOUS THRUSH, PT DTR STATED SHE WAS ON THIN LIQUIDS, NOTICED A CUP WITH THICKENED LIQUIDS. PT IS THIN LIQUID AT THIS TIME. PT HAS OXYGEN ON 2L NC. PT LBM 10/08, PT DID TAKE LACTULOSE.
--- NOTE | 2021-10-10 13:52 | NUR ---
ASSISTED PT TO BATHROOM AND PT STATED SHE HAD A BM. PT BREATHING FAST AND STATED TO TAKE SOME DEEP BREATHS. PT LEANING OVER HER HEAD ON W/C ARM. PT WAS ABLE TO STAND AND HOLD ONTO THE BAR IN BATHROOM AND NEEDED ASSISTANCE WITH TAKING PANTS DOWN TO SIT ON TOILET. PT SEEMS ANXIOUS WITH ACTIVITY. OXYGEN ON 4L NC.
--- NOTE | 2021-10-10 14:01 | NUR ---
PT WAS ABLE TO WHEEL SELF BACK TO DINING ROOM. STILL ENCOURAGING PT TO BREATH IN THREW NOSE AND OUT OF MOUTH.
[2021-10-10 20:00] VITALS: BP 114/60
--- NOTE | 2021-10-11 03:30 | NUR ---
ASSUMED CARE AT 1930 OF 10/10. PATIENT IS A&O TO PERSON AND SITUATION, FORGETFUL AT TIMES. DENIES PAIN OR SOB. TOLERATED ORAL MEDS WHOLE IN APPLE SAUCE, PO FLUID ENCOURAGED. PATIENT REFUSED TO GET INTO A GOWN FOR THE NIGHT, AND REQUESTED THAT BRIEF BE LEFT ON. PATIENT STATES SHE WILL LET NURSE KNOW IF IT BECOMES WET. BRIEF WAS DRY AND UNSOILED AT HS. PATIENT IS ENCOURAGED TO SHIFT WEIGHT WHILE IN BED. FALL PRECAUTIONS IN PLACE, HOURLY ROUNDS CONTINUED AND PATIENT IS NOTED TO BE SLEEPING SOUNDLY. CALL LIGHT LEFT WITHIN REACH, WILL CONTINUE TO MONITOR.
--- NOTE | 2021-10-11 09:27 | NUR ---
[facility] unable to get 18" wheel chair. CM send referral to [facility], they can supply her wheelchair and home o2 when she is dc. Will need rest and exercise checked for home o2 needs.
[2021-10-11 09:50] VITALS: BP 123/77
--- NOTE | 2021-10-11 13:53 | NUR ---
team meeting, recommendation< 28/04 supervision, severe memory, and cognition deficit. will need assist with medication and finances. Daughter been here working with therapy. Will required home oxygen and wheelchair at nc through [facility]. CT 10/13/21 with daughter support. (pt, ot, st, nursing). daughter got walker and shower chair. Going to her daughter house at [place].
[2021-10-11 19:45] VITALS: BP 104/54
--- NOTE | 2021-10-12 05:36 | NUR ---
ASSUMED CARE AT 1930 OF 10/11. PATIENT IS A&OX3 AND FORGETFUL. DENIES PAIN. EXHIBITS SHORTNESS OF BREATH AT EXERTION, CONTINUE ON 2L OF O2. MINIMAL ASSIT WITH TRANSFERS, USING GB AND WALKER. SLEEPING ON HORLY ROUND, PATIENT IS NOTED TO SHIFT POSITIONS INDEPENDENTLY. FALL PRECAUTIONS IN PLACE, CALL LIGHT WITHIN REACH. WILL CONTINUE TO MONITOR.
[2021-10-12 08:00] VITALS: BP 115/63
--- NOTE | 2021-10-12 10:45 | NUR ---
PT TOOK MEDS WITH APPLESAUCE ONE AT A TIME WITHOUT ANY ISSUES. EDUCATED DTR ON EFFECTS OF PETROLEUM JELLY AND OXYGEN, PT WAS USING PETROLEUM ON HER LIPS UNTIL EDUCATION.
--- NOTE | 2021-10-12 10:51 | NUR ---
PT WAS WORKING WITH THERAPY THIS AM AND FINISHED A WALKING OXYGEN SAT CHECK. PT PLAN IS TO GO HOME TOMMORROW. PT DOES HAVE PURSED BREATHING WITH EXERTION. ENCOURAGED PT TO BREATH IN NOSE OUT MOUGHT. PT HAS OXYGEN ON 2L NC. RESP. LEFT OXYGEN OFF THIS AM FOR OXYGEN CHECK. PT SAT THIS AM ON ROOM AIR, IS 81%, HAD TO PLACE OXYGEN BACK ON PT AT 2L. PT LUNGS CLEAR. PT WALKING WITH WALKER IN CHIU. PT ABLE TO WALK FROM BED TO BATHROOM HAS SOB WITH EXERTION. RT RECOMMENDED OXYGEN ON 2L WITHOUT EXERTION AND 6L WITH EXERTION. PT DENIES ANY PAIN. PT STATED SHE HASN'T HAD A BM IN A FEW DAYS AND FEELS STUFFY TO HER ABD, PT ABD SOFT WITH BOWEL SOUNDS.
--- NOTE | 2021-10-12 12:32 | HC ---
[facility] [place] [address] CONSULTATION Name: KESHA PUENTES Room #: 503-P [facility] IN M.R.#: [id number] Admission: 09/22/21 Attend Phys: Nabil Porras MD Discharge: Date of : 38 Report #: [id number] THIS REPORT FOR: cc: Bayron Peter MD, Mark A. MD Deutch,Robin Springer. PhD ~ DATE OF SERVICE: 10/01/2021 NEUROBEHAVIORAL STATUS EXAM ATTENDING PHYSICIAN: Nabil Porras M.D. CONSULTANTS: Robin Melgoza, PhD. CLINICAL PRESENTATION: The patient is an 80-year-old female admitted to the hospital with shortness of breath and weakness on 09/12/2021. She was diagnosed with COVID-19 pneumonia and acute respiratory failure. Prior to this most recent admission, she was living independently in her own home. She is described as having been independent with basic and instrumental activities of daily living. Her assessment on her admission to the rehabilitation unit included acute toxic encephalopathy, medical complexity with generalized debility, COVID-19 pneumonia with acute hypoxic respiratory failure, aphasia, dysphagia, hypertension and thrush. A complete description of her medical condition and history can be found in her medical record. Neuropsychological consultation was requested to provide assistance in the assessment of cognitive and emotional status and provide recommendations and services. As indicated, she was living independently prior to this most recent medical event. She has 2 children. The patient is a high school graduate. She is retired from employment for [employer]. She was driving and managing her own bills and medication. Her family is supportive. TECHNIQUES UTILIZED: Clinical interview, review of medical records, staff consultation and behavioral observation, mini mental status exam 2 standard version and clock drawing, family interview-daughter. EXAMINATION FINDINGS: The patient was alert and cooperative during the assessment. She was unable to provide an explanation of the reason for her hospitalization. There is no reported history of depression or anxiety. She was restless during the assessment. Her appetite is described as good. Difficulty with memory and word finding along with tiredness and fatigue are noted. The patient is lacking insight into the extent of her cognitive deficits. Performance on the MMSE 2 brief version is extremely low with a raw score of [facility] [address] [place] [address] CONSULTATION Name: KESHA PUENTES Room #: 503-P [facility] IN ..#: [id number] Admission: 09/22/21 Attend Phys: Nabil Porras MD Discharge: Date of : 38 Report #: [id number] 08/21. She was 3/3 for initial registration, 2/5 for orientation to time, 5/[address] and 1/3 for immediate recall of 3 items after a brief time delay and distraction. Performance on the MMSE 2 standard version is extremely low with a raw score of 18/30. She was 0/5 for serial sevens, 2/2 for naming, 1/1 for repetition, 3/3 for auditory comprehension. She could read and follow a single command. The patient was unable to write a sentence or copy a simple geometric design. Performance on clock drawing was impaired. She was able to place numbers within the clock, but was unable to accurately set the hands at a designated time. The patient is presenting with severe deficits in cognition. Her level of functioning is reported to have been quite high prior to her recent infection and hospitalization. This type of presentation may suggest a continued delirium; however, neurocognitive disorder cannot be ruled out. DIAGNOSTIC IMPRESSION: Delirium, mixed level of activity, acute. Neurocognitive disorder, extent to be determined RECOMMENDATIONS: Speech therapy indicates cognitive deficits along with memory to be severe. Upon discharge she is likely to require supervision and assistance with manging medication, finances and nutrition and will need to discontinue driving until neurocognitive deficits resolve. Follow up neuro-psych assessment upon the resolution of her acute medical condition approximately two to three months after discharge. Thank you very much for allowing me to provide the consultation on this patient. <ELECTRONICALLY SIGNED> By: Robin Melgoza, PhD 10/12/21 1232 [id number] Robin Melgoza, PhD /nt
[2021-10-12] MEDS ORDERED: VITAMIN C1000 MG PO (13:07)
[2021-10-12] MEDS ORDERED: VITAMIN D325 MC2 PO (13:07)
[2021-10-12] MEDS ORDERED: FELODIPINE 5 MG5 M1 PO ×2 (13:07→13:09)
[2021-10-12] MEDS ORDERED: ZINC SULFATE50 MG PO (13:07)
[2021-10-12] MEDS ORDERED: MIRALAX17 GM PO (13:07)
[2021-10-12] MEDS ORDERED: MIRALAX119 GM PO (13:09)
[2021-10-12] MEDS ORDERED: VENTOLIN HFA 1818 GM INH (13:09)
[2021-10-12 14:44] VITALS: BP 115/63
--- NOTE | 2021-10-12 14:46 | NUR ---
Care team indicating that pt is medically stable to dc home tomorrow Friday10/13/21. Pt and Rt completed ex ox testing and it was determined that pt needs 2L at rest and 6L with activity upon discharge home. Wc for home use and home O2 were ordered through [employer] [facility]: [facility]: . WC and portable tank were delivered to pt's room by liaison demetra friday afternoon. Pt's dtr was present. Cm followed up with dtr Debby via phone and is will call [facility] to have home O2 set up delivered this evening. Dtr indicated that she plans to pick Pt up tomorrow around 12:00. Orders will need to be faxed to [facility] at . Pt to dc home tomorrow Friday10/13/20 at 12:00 to dtr Jennyfer [facility] home at address [address] [place] [place] [address], # [phone] with WC and Home o2 through [employer] and [facility]. Cm notified norman Fair. No other cm intervetnion indicated. Case closed.
--- NOTE | 2021-10-12 15:45 | NUR ---
PT DID HAVE A BM WITH THERAPY AND STATED SHE FEELS BETTER.
[2021-10-12 19:39] VITALS: BP 120/77
--- NOTE | 2021-10-13 02:04 | NUR ---
assumed care approx 1900 evening 10/12. pt in dining area at change of shift. pt assisted back to her room via w/c from day shift staff. pt confused and stating she wanted to leave. pt given emotional support and bible and after she prayed she seemed to calm down. pt refused to get into bed and also refused hs meds. pt frustrated and still stating she just wanted to leave this place. pt presently in recliner sleeping off and on. 02 at 2l per n/c. chair alarm on and call light in reach. will continue to monitor.
[2021-10-13 08:00] VITALS: BP 146/64
--- NOTE | 2021-10-13 10:14 | NUR ---
PT IN A PLEASANT MOOD THIS AM. PT WILL D/C TO HOME TODAY AROUND NOON. PT TOOK MEDS WITH APPLESAUCE WITHOUT ANY ISSUES. PT UP TO BATHROOM THIS AM WITH WALKER AND OXYGEN ON 2L NC. PT DENIES ANY PAIN. ENCOURAGED PT TO BREATH THROUGH NOSE AND OUT OF THE MOUTH WITH ACTIVITY.
--- NOTE | 2021-10-13 11:30 | NUR ---
PT DTR ARRIVED FOR D/C. SHE BROUGHT MEDS SHE PURCHACED OVER THE COUNTER. CALLED DR. DOVE FOR DISCHARGE ORDERS. ORDER OBTAINED OVER THE PHONE FOR D/C. WENT OVER DISCHARGE INSTRUCTIONS WITH DTR AND ALSO F/U WITH DRS. DAUGHTER UNDERSTOOD D/C ORDERS. PT HAS OXYGEN TANK AND ALSO W/C IN ROOM.
--- NOTE | 2021-10-13 13:10 | NUR ---
PT LEFT VIA PERSONAL W/C AND OXYGEN TO CAR. PT WAS ABLE TO TRANSFER TO CAR WITH MINIMAL ASSIST.
== END 2021-10-13 13:10 | disposition home health service (06) | DRG 91 ==
LOC: 3W 10:42
PROVIDERS: Internal Medicine; Nurse Practitioner; Nurse Practitioner Family; Specialist; ADMIT Physical Medicine & Rehabilitation; ATTEND Physical Medicine & Rehabilitation
PROC: 5A0935A Assistance with Respiratory Ventilation, Less than 24 Consecutive Hours, High Flow/Velocity Cannula (ICD-10-PCS; principal; 2021-09-26)
PROC: 5A09357 Assistance with Respiratory Ventilation, Less than 24 Consecutive Hours, Continuous Positive Airway Pressure (ICD-10-PCS; 2021-09-29)
PROC: 5A0935A Assistance with Respiratory Ventilation, Less than 24 Consecutive Hours, High Flow/Velocity Cannula (ICD-10-PCS; 2021-10-02)
DX: G92.8 Other toxic encephalopathy (principal); A41.9 Sepsis, unspecified organism; U07.1 COVID-19; J12.82 Pneumonia due to coronavirus disease 2019; J80 Acute respiratory distress syndrome; E43 Unspecified severe protein-calorie malnutrition; B37.0 Candidal stomatitis; R53.81 Other malaise; I10 Essential (primary) hypertension; R13.10 Dysphagia, unspecified; R41.0 Disorientation, unspecified; R41.9 Unspecified symptoms and signs involving cognitive functions and awareness; Z66 Do not resuscitate; R73.9 Hyperglycemia, unspecified; R33.9 Retention of urine, unspecified; F41.9 Anxiety disorder, unspecified; Z90.711 Acquired absence of uterus with remaining cervical stump; Z68.22 Body mass index [BMI] 22.0-22.9, adult
CPT/HCPCS: 10112